=== PATIENT | male | born 1980 | race African-American/Black ===

== ENCOUNTER 2017-09-16 04:30 | Emergency (ER) | payer MEDICAID ==
[~2017-09-16] VITALS: Ht 185.4 cm; Wt 90.7 kg
[2017-09-16 05:25] VITALS: BP 151/91
[2017-09-16] MEDS ORDERED: ANUSOL-HC25 MG RECTAL (05:39)
--- NOTE | 2017-09-16 05:40 | Emergency Room Report ---
History of Present Illness General Chief Complaint: General Complaint Source: Patient Present Illness HPI Is a 36-year-old male with history of marijuana and occasional cocaine abuse. He presents with 2 complaints. One is left-sided pain is been ongoing for months. Worse when he gets anxious or use cocaine. No fever chills. No nausea no vomiting. Second complaint is rectal pain is been ongoing for the last few days but worse the last couple days. Occasional blood in his stool. No fever or chills. Radiate to the groin. Worse with sitting. Better standing. Allergies: Coded Allergies: No Known Allergies (Unverified , 09/16/17) Patient History Past Medical History: see triage record, old chart reviewed Past Surgical History: none Pertinent Family History: none Social History: Denies: smoking Immunizations: other Reviewed Nursing Documentation: PMH: Agreed; PSxH: Agreed Nursing Documentation-PMH Past Medical History: No Stated History Review of Systems Eye: Denies: eye pain, blurred vision ENT: Denies: ear pain, nose congestion, throat swelling Respiratory: Denies: cough, shortness of breath Cardiovascular: Denies: chest pain, palpitations Gastrointestinal: Denies: abdominal pain, diarrhea, nausea, vomiting Musculoskeletal: Denies: back pain, joint pain Skin: Denies: rash Neurological: Denies: headache, numbness Endocrine: Denies: increased thirst, increased urine Hematologic/Lymphatic: Denies: easy bruising All Other Systems: negative except mentioned in HPI Physical Exam Vital Signs Date Time Temp Pulse Resp B/P (MAP) Pulse Ox O2 Delivery O2 Flow Rate FiO2 09/16/17 05:24 98.5 77 18 151/91 98 Room Air 98.4 vitals with high blood pressure Sp02 EP Interpretation: reviewed, normal General Appearance: well appearing, no apparent distress, alert Head: normocephalic, atraumatic Eyes: bilateral eye PERRL, bilateral eye EOMI ENT: hearing grossly normal, normal pharynx Neck: full range of motion, supple, no meningismus Respiratory: chest non-tender, lungs clear, normal breath sounds Cardiovascular #1: regular rate, rhythm, no murmur Gastrointestinal: normal bowel sounds, non tender, no mass, no organomegaly, no bruit, non-distended Rectal: other - hemorrhoid at the 7 to 8 o'clock position. Not thrombosed. Tender To palpation Musculoskeletal: back normal, gait/station normal, normal range of motion Psychiatric: mood/affect normal Skin: warm/dry Medical Decision Making Diagnostic Impression: Primary Impression: Pain Additional Impressions: Hemorrhoid Qualified Codes: K64.9 - Unspecified hemorrhoids Drug abuse ER Course Patient with body pain secondary to anxiety and drug use. No evidence of any infection. No evidence of any trauma. He is pain-free now. We will discharge home. This hemorrhoid is not thrombosed so does not need to be excised. We'll discharge home. Last Vital Signs Date Time Temp Pulse Resp B/P (MAP) Pulse Ox O2 Delivery O2 Flow Rate FiO2 09/16/17 05:25 98.4 77 18 151/91 98 Room Air 98.4 Status: unchanged Disposition: HOME, SELF-CARE Condition: Stable Scripts Hydrocortisone Acetate* (ANUSOL-HC*) 25 Mg Supp.rect 1 SUPP RECTAL TWICE A DAY, #14 SUPP Prov: JASMINE MCNEAL M.D. 09/16/17 Referrals: NOT CHOSEN [facility]/,REFERRING (PCP) Additional Instructions: Stop using drugs. Follow-up with your doctor in 7 days. Return if worse. JASMINE MCNEAL M.D. Sep 16, 2017 05:40
[2017-09-16 05:44] VITALS: BP 151/91
== END 2017-09-16 05:45 | disposition home or self-care (01) ==
LOC: EMR 05:35
DX: K64.9 Unspecified hemorrhoids (principal); F14.10 Cocaine abuse, uncomplicated; F12.10 Cannabis abuse, uncomplicated; F41.9 Anxiety disorder, unspecified
CPT/HCPCS: 99282

== ENCOUNTER 2017-11-26 07:38 | Emergency (ER) | payer MEDICAID ==
[~2017-11-26] VITALS: Ht 185.4 cm; Wt 86.2 kg
[~2017-11-26 07:38] MED LIST: ANUSOL-HC25 MG RECTAL
[2017-11-26 07:42] VITALS: BP 176/108
[2017-11-26] MEDS ORDERED: NKM (07:44)
--- NOTE | 2017-11-26 07:56 | Emergency Room Report ---
History of Present Illness General Chief Complaint: Multiple Trauma/Fall Source: Patient Present Illness HPI Patient is a 37-year-old male who presented after increased left upper extremity pain. Patient reports having a recent fall last night. Patient states that he did not lose consciousness. Patient reports having fallen onto his left shoulder. He reports having increased pain to the left wrist as well as the left shoulder pain was worse with movement. Pain sharp in nature. The patient was having prior history of hypertension but does not currently take any medications. He reports drinking alcohol regularly. Allergies: Coded Allergies: No Known Allergies (Unverified , 09/16/17) Patient History Reviewed Nursing Documentation: PMH: Agreed; PSxH: Agreed Nursing Documentation-PMH Past Medical History: No Stated History Review of Systems All Other Systems: negative except mentioned in HPI Physical Exam Vital Signs Date Time Temp Pulse Resp B/P (MAP) Pulse Ox O2 Delivery O2 Flow Rate FiO2 11/26/17 07:42 98.0 118 18 176/108 95 Room Air 98.0 Sp02 EP Interpretation: reviewed, normal General Appearance: normal inspection, well appearing, no apparent distress, alert, GCS 15 Head: atraumatic ENT: normal ENT inspection, hearing grossly normal, normal voice Neck: normal inspection, full range of motion, supple, no bony tend Respiratory: normal inspection, lungs clear, normal breath sounds, no respiratory distress, no retraction, no wheezing Cardiovascular #1: regular rate, rhythm, no edema Gastrointestinal: normal inspection, normal bowel sounds, non tender, soft, no guarding, no hernia Genitourinary: no CVA tenderness Musculoskeletal: normal inspection, back normal, swelling - left wrist, tenderness to left shoulder near ac joint, no deformity Neurologic: normal inspection, alert, oriented x3, responsive, offset pressman III-XII nml as tested, speech normal Psychiatric: normal inspection, judgement/insight normal, mood/affect normal Skin: normal inspection, normal color, no rash Medical Decision Making Diagnostic Impression: Primary Impression: Fall Additional Impressions: Fracture of distal end of radius AC separation ER Course Patient presented for left shoulder and wrist pain. Differential diagnosis included fracture, dislocation, scapphoid fracture, sprain, ganglion cyst, septic joint , arthritis, abscess among others. Wrist and shoulder Xrays were ordered. X-ray the left shoulder 3 views interpreted by me showed normal bony alignment without evident fracture. X-ray of the left wrist 3 views interpreted by me showed a minimally displaced distal radius fracture. As well as a scaphoid fracture. The patient was placed in a thumb spica splint. The left upper extremity is placed in a sling. The patient was advised orthopedic follow-up. He is given prescription for pain medications. Last Vital Signs Date Time Temp Pulse Resp B/P (MAP) Pulse Ox O2 Delivery O2 Flow Rate FiO2 11/26/17 07:42 97.9 118 18 176/108 95 Room Air 97.9 Status: improved Disposition: HOME, SELF-CARE Condition: Stable Scripts Ibuprofen* (MOTRIN*) 600 Mg Tablet 600 MG ORAL Q8H PRN for For Pain, #30 TAB 0 Refills Prov: Jerrell Mendoza MD 11/26/17 Hydrocodone Bit/Acetaminophen 5-325* (NORCO 5-325*) 1 Each Tablet 1 TAB ORAL Q6H PRN for For Pain, #20 TAB 0 Refills Prov: Jerrell Mendoza MD 11/26/17 Jerrell Mendoza MD Nov 26, 2017 07:56
[2017-11-26] MEDS ORDERED: Acetaminophen 500mg (ES) tab ORAL ONE (08:00)
[2017-11-26] MEDS ORDERED: Ketorolac 30mg Inj IM ONE (08:00)
[2017-11-26] MEDS ORDERED: IBUPROFEN600 MG ORAL (08:17)
[2017-11-26] MEDS ORDERED: NORCO 5-325 TA1 EACH ORAL (08:17)
[2017-11-26 08:28] VITALS: BP 176/108
--- NOTE | 2017-11-26 08:31 | Diagnostic Imaging Report ---
LEFT SHOULDER, Views INDICATION: Pain COMPARISON: None FINDINGS: 3 views of the left shoulder are obtained. Mild hypertrophic arthropathy of the acromioclavicular joint space. Bony structures are intact. Bone mineralization is within normal limits. No dislocation at the glenohumeral joint. Joint spaces are preserved. Soft tissues are within normal limits. IMPRESSION: No acute fracture or dislocation identified.
--- NOTE | 2017-11-26 08:39 | Diagnostic Imaging Report ---
LEFT WRIST, Views INDICATION: Pain COMPARISON: None FINDINGS: 3 views of the left wrist are obtained. Irregularity of the distal radius suggestive of fracture without intra- articular extension, correlation can be obtained with CT. Bone mineralization and alignment are within normal limits. Joint spaces are preserved. Soft tissues are within normal limits. IMPRESSION: Irregularity of the distal radius suggestive of fracture without intra-articular extension, correlation can be obtained with CT.
== END 2017-11-26 08:27 | disposition home or self-care (01) ==
LOC: EMR 07:55
DX: S52.502A Unspecified fracture of the lower end of left radius, initial encounter for closed fracture (principal); S43.102A Unspecified dislocation of left acromioclavicular joint, initial encounter; W19.XXXA Unspecified fall, initial encounter; Y92.9 Unspecified place or not applicable
CPT/HCPCS: 73030; 73110; 96372; 99284; J1885

== ENCOUNTER 2017-12-21 11:24 | Emergency (ER) | payer MEDICAID ==
[~2017-12-21] VITALS: Ht 185.4 cm; Wt 81.6 kg
[~2017-12-21 11:24] MED LIST changes: +IBUPROFEN600 MG ORAL; +NKM; +NORCO 5-325 TA1 EACH ORAL
[2017-12-21 11:30] VITALS: BP 115/67
[2017-12-21] MEDS ORDERED: Lidocaine 2% Visc 15ml soln ORAL ONE (12:45)
[2017-12-21 13:25] VITALS: BP 120/64
[2017-12-21] MEDS ORDERED: Methocarbamol 750mg tab ORAL ONE (13:30)
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
[2017-12-21] MEDS ORDERED: MULTIVITAMINS1 EAC2 ORAL (14:20)
[2017-12-21] MEDS ORDERED: TYLENOL EXTRA500 MG ORAL (14:20)
[2017-12-21] MEDS ORDERED: ROBAXIN500 MG PO (14:20)
[2017-12-21 15:02] VITALS: BP 124/70
--- NOTE | 2017-12-21 15:44 | Diagnostic Imaging Report ---
Indication: Pain right ankle ankle pain/trauma Comparison: None Findings: 3 views of the right ankle obtained. No acute fracture, malalignment, periostitis, or osteochondral defects are identified. Soft tissues are unremarkable. Impression: Negative examination
[2017-12-21 16:00] VITALS: BP 124/70
== END 2017-12-21 16:00 | disposition home or self-care (01) ==
LOC: EDBD 11:24 → EMR 13:37
DX: M79.10 Myalgia, unspecified site (principal); S00.83XA Contusion of other part of head, initial encounter; S40.022A Contusion of left upper arm, initial encounter; S40.021A Contusion of right upper arm, initial encounter; S80.12XA Contusion of left lower leg, initial encounter; S80.11XA Contusion of right lower leg, initial encounter; S93.401A Sprain of unspecified ligament of right ankle, initial encounter; Y04.0XXA Assault by unarmed brawl or fight, initial encounter; Y92.9 Unspecified place or not applicable
CPT/HCPCS: 99283

== ENCOUNTER 2018-01-17 08:25 | Emergency (ER) | payer MEDICAID ==
[~2018-01-17] VITALS: Ht 185.4 cm; Wt 89.8 kg
[~2018-01-17 08:25] MED LIST changes: +MULTIVITAMINS1 EAC2 ORAL; +ROBAXIN500 MG PO; +TYLENOL EXTRA500 MG ORAL
[2018-01-17] MEDS ORDERED: IBUPROFEN600 MG ORAL (08:54)
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
[2018-01-17] MEDS ORDERED: Ketorolac 60mg Inj IM ONE (09:00)
[2018-01-17 09:08] VITALS: BP 127/83
== END 2018-01-17 09:15 | disposition home or self-care (01) ==
LOC: EMR 09:10
DX: S93.401A Sprain of unspecified ligament of right ankle, initial encounter (principal); X50.1XXA Overexertion from prolonged static or awkward postures, initial encounter; Y93.01 Activity, walking, marching and hiking; Y99.8 Other external cause status
CPT/HCPCS: 96372; 99283

== ENCOUNTER 2018-04-27 05:04 | Emergency (ER) | payer MEDICAID ==
[~2018-04-27] VITALS: Ht 185.4 cm; Wt 90.7 kg
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
[2018-04-27] MEDS ORDERED: Ketorolac 60mg Inj IM ONE (05:30)
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
[2018-04-27] MEDS ORDERED: Ketorolac 30mg Inj ONE (05:38)
--- NOTE | 2018-04-27 05:45 | NUR ---
ED Nurse Note: X ray at bedside.
[2018-04-27] MEDS ORDERED: IBUPROFEN600 MG ORAL (05:46)
[2018-04-27 05:51] VITALS: BP 146/94
[2018-04-27] MEDS ORDERED: Albuterol/Ipratropium 3ml neb HHN ONE (06:00)
[2018-04-27] MEDS ORDERED: Albuterol/Ipratropium 3ml neb ONE (06:02)
[2018-04-27 06:30] VITALS: BP 141/92
--- NOTE | 2018-04-27 06:30 | NUR ---
ER DISCHARGE NOTE: Patient is cleared to be discharged per Dr. Mendoza. Pt is aox4 on room air with stable vital signs. Pt was given dc and prescription instructions, pt was able to verbalize understanding, pt id band removed . pt is able to ambulate with steady gait. pt took all belongings.
--- NOTE | 2018-04-27 09:50 | Diagnostic Imaging Report ---
Indication: Shortness of breath Technique: One view of the chest Comparison: Findings: Lungs and pleural spaces are clear. Heart size is normal Impression: No acute process
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
== END 2018-04-27 06:30 | disposition home or self-care (01) ==
LOC: EMR 05:53
DX: M25.511 Pain in right shoulder (principal); R06.00 Dyspnea, unspecified; M54.6 Pain in thoracic spine; R07.9 Chest pain, unspecified
CPT/HCPCS: 71045; 73030; 93005; 94640; 94664; 96372; 99284; J1885; J7620

== ENCOUNTER 2020-01-24 01:46 | Emergency (ER) | payer MEDICAID ==
[~2020-01-24] VITALS: Ht 182.9 cm; Wt 90.7 kg
[2020-01-24 02:00] VITALS: BP 162/94
--- NOTE | 2020-01-24 02:00 | NUR ---
ED Nurse Note: Patient walked into ED c/o multiple issues, patient reports of having a palpable lump located on his right thigh, states that 3 days ago he started to pee more frequently, patient is alert and oriented x4, reports of having gained weight recently, states that he is also pre-diabetic. patient is currently tachycardic in the 140s at time of triage however reports of feeling nervousness. patient also states that he currently does have pain located on his abdomen that he rates a 8/10 pain, denies any nausea, vomiting, or diarrhea. all these symptoms started suddently. will continue to monitor
[2020-01-24] MEDS ORDERED: cefTRIAXone 1 GM in NS 55 ML IVPB ONE (02:15)
--- NOTE | 2020-01-24 02:25 | NUR ---
ED Nurse Note: pt laying in bed with eyes open, pt is AAOX4. Blood and urine collected and sent to lab by FRANCISCO Vu.
[2020-01-24 02:26] LABS: APPEARANCE,URINE CLEAR; BILIRUBIN, URINE NEGATIVE (NEGATIVE); COLOR,URINE PALE YELLOW; GLUCOSE, URINE (UA) NEGATIVE (NEGATIVE); KETONES,URINE NEGATIVE (NEGATIVE); LEUKOCYTE ESTERASE ,URINE NEGATIVE (NEGATIVE); NITRITE,URINE NEGATIVE (NEGATIVE); PH,URINE 6.5 (4.5-8.0); PROTEIN,URINE NEGATIVE (NEGATIVE); UROBILINOGEN,URINE NORMAL MG/DL (0.0-1.0)
[2020-01-24 02:27] LABS: BASOPHILS % (AUTO) 1.2 % (0.0-2.0); HEMATOCRIT 42.7 % (42.0-52.0); LYMPHOCYTES % (AUTO) 11.7 % (20.0-45.0); MEAN CORPUSCULAR VOLUME 89 FL (80-99); MONOCYTES % (AUTO) 3.4 % (1.0-10.0); NEUTROPHILS % (AUTO) 83.7 % (45.0-75.0); PLATELET COUNT 389 K/UL (150-450); RED BLOOD COUNT 4.82 M/UL (4.70-6.10); RED CELL DISTRIBUTION WIDTH 14.1 % (11.6-14.8); WHITE BLOOD COUNT 14.3 K/UL (4.8-10.8)
[2020-01-24 02:39] LABS: ANION GAP 6 mmol/L (5-15); BLOOD UREA NITROGEN 18 mg/dL (7-18); CALCIUM 8.8 MG/DL (8.5-10.1); CARBON DIOXIDE 29 MMOL/L (21-32); CHLORIDE 105 MMOL/L (98-107); CREATININE 1.2 MG/DL (0.55-1.30); POTASSIUM 3.8 MMOL/L (3.5-5.1); SODIUM 140 MMOL/L (136-145)
[2020-01-24 02:43] LABS: ALANINE AMINOTRANSFERASE 56 U/L (12-78); ALBUMIN 3.8 G/DL (3.4-5.0); ALBUMIN/GLOBULIN RATIO 1.1 (1.0-2.7); ALKALINE PHOSPHATASE 77 U/L (46-116); ASPARTATE AMINO TRANSFERASE 26 U/L (15-37); BILIRUBIN,TOTAL 0.2 MG/DL (0.2-1.0)
--- NOTE | 2020-01-24 02:56 | Emergency Room Report ---
History of Present Illness General Chief Complaint: General Complaint Source: Patient Present Illness HPI Patient is a 39-year-old male presents for increased dysuria. Reports of increased generalized burning sensation as well as increased pain to a lesion to his right thigh. Reports having recently restarted drinking. He reports having some episodes of vomiting as well as diarrhea. Allergies: Coded Allergies: No Known Allergies (Unverified , 09/16/17) COVID-19 Screening Contact w/high risk pt: No Experienced COVID-19 symptoms?: No COVID-19 Testing performed MANGLE FEEDER: Yes - 12/2019 COVID-19 Screening: Negative COVID-19 COVID-19 Testing Source: [facility] Patient History Past Medical History: see triage record Reviewed Nursing Documentation: PMH: Agreed; PSxH: Agreed Nursing Documentation-PMH Past Medical History: No Stated History Review of Systems All Other Systems: negative except mentioned in HPI Physical Exam Vital Signs Date Time Temp Pulse Resp B/P (MAP) Pulse Ox O2 Delivery O2 Flow Rate FiO2 01/24/20 01:51 98.2 130 18 162/94 (116) 96 Room Air Sp02 EP Interpretation: reviewed, normal General Appearance: normal inspection, well appearing, no apparent distress, alert, GCS 15 Head: atraumatic ENT: normal ENT inspection, hearing grossly normal, normal voice Neck: normal inspection, full range of motion, supple, no bony tend Respiratory: normal inspection, lungs clear, normal breath sounds, no respiratory distress, no retraction, no wheezing Cardiovascular #1: regular rate, rhythm, no edema Gastrointestinal: normal inspection, normal bowel sounds, non tender, soft, no guarding, no hernia Genitourinary: no CVA tenderness Musculoskeletal: normal inspection, back normal, normal range of motion Neurologic: alert, motor strength/tone normal, product design manager III-XII nml as tested, oriented x3, responsive, speech normal, normal inspection Psychiatric: normal inspection, judgement/insight normal, mood/affect normal Skin: other - lesion to the right thigh freely mobile mildly tender Medical Decision Making Diagnostic Impression: Primary Impression: Substance abuse ER Course Patient presented for increased dysuria as well as generalized body aches and n ausea. Differential diagnosis include was not limited to electrolyte abnormality, alcohol withdrawal, substance abuse among others. Because of complexity of patient's case laboratory tests and imaging studies were ordered. Patient's laboratory testing showed positive urine drug screen for amphetamine cocaine and marijuana. Patient appears to be somewhat intoxicated with possibly some alcohol withdrawal. He was given Ativan.Patient is given IV antibiotics as well as given prescription for oral antibiotics. He is advised not to use drugs. He was advised to return if worse. This medical record is generated with [email or web address] public health clinical nurse specialist software. There may be some public health clinical nurse specialist discrepancies related to use of this software Labs Test 01/24/20 02:15 White Blood Count 14.3 K/UL (4.8-10.8) Red Blood Count 4.82 M/UL (4.70-6.10) Hemoglobin 15.0 G/DL (14.2-18.0) Hematocrit 42.7 % (42.0-52.0) Mean Corpuscular Volume 89 FL (80-99) Mean Corpuscular Hemoglobin 31.1 PG (27.0-31.0) Mean Corpuscular Hemoglobin Concent 35.1 G/DL (32.0-36.0) Red Cell Distribution Width 14.1 % (11.6-14.8) Platelet Count 389 K/UL (150-450) Mean Platelet Volume 6.4 FL (6.5-10.1) Neutrophils (%) (Auto) 83.7 % (45.0-75.0) Lymphocytes (%) (Auto) 11.7 % (20.0-45.0) Monocytes (%) (Auto) 3.4 % (1.0-10.0) Eosinophils (%) (Auto) 0.0 % (0.0-3.0) Basophils (%) (Auto) 1.2 % (0.0-2.0) Urine Color Pale yellow Urine Appearance Clear Urine pH 6.5 (4.5-8.0) Urine Specific [place] 1.015 (1.005-1.035) Urine Protein Negative (NEGATIVE) Urine Glucose (UA) Negative (NEGATIVE) Urine Ketones Negative (NEGATIVE) Urine Blood 2+ (NEGATIVE) Urine Nitrite Negative (NEGATIVE) Urine Bilirubin Negative (NEGATIVE) Urine Urobilinogen Normal MG/DL (0.0-1.0) Urine Leukocyte Esterase Negative (NEGATIVE) Urine RBC 2-4 /HPF (0 - 0) Urine WBC 0 /HPF (0 - 0) Urine Squamous Epithelial Cells None /LPF (NONE/OCC) Urine Bacteria None /HPF (NONE) Sodium Level 140 MMOL/L (136-145) Potassium Level 3.8 MMOL/L (3.5-5.1) Chloride Level 105 MMOL/L (98-107) Carbon Dioxide Level 29 MMOL/L (21-32) Anion Gap 6 mmol/L (5-15) Blood Urea Nitrogen 18 mg/dL (7-18) Creatinine 1.2 MG/DL (0.55-1.30) Estimat Glomerular Filtration Rate > 60 mL/min (>60) Glucose Level 124 MG/DL (74-106) Calcium Level 8.8 MG/DL (8.5-10.1) Total Bilirubin 0.2 MG/DL (0.2-1.0) Aspartate Amino Transf (AST/SGOT) 26 U/L (15-37) Alanine Aminotransferase (ALT/SGPT) 56 U/L (12-78) Alkaline Phosphatase 77 U/L (46-116) Troponin I 0.002 ng/mL (0.000-0.056) Total Protein 7.4 G/DL (6.4-8.2) Albumin 3.8 G/DL (3.4-5.0) Globulin 3.6 g/dL Albumin/Globulin Ratio 1.1 (1.0-2.7) Lipase 84 U/L (73-393) Urine Opiates Screen Negative (NEGATIVE) Urine Barbiturates Screen Negative (NEGATIVE) Phencyclidine (PCP) Screen Negative (NEGATIVE) Urine Amphetamines Screen Positive (NEGATIVE) Urine Benzodiazepines Screen Negative (NEGATIVE) Urine Cocaine Screen Positive (NEGATIVE) Urine Marijuana (THC) Screen Positive (NEGATIVE) Serum Alcohol < 3 mg/dL Last Vital Signs Date Time Temp Pulse Resp B/P (MAP) Pulse Ox O2 Delivery O2 Flow Rate FiO2 01/24/20 02:50 115 18 138/77 100 01/24/20 02:00 Room Air 01/24/20 02:00 98.2 Status: improved Disposition: HOME, SELF-CARE Condition: Stable Scripts Lorazepam* (ATIVAN*) 1 Mg Tablet 1 MG ORAL BEDTIME, #10 TAB Prov: Jerrell Mendoza MD 01/24/20 Doxycycline Monohydrate* (DOXYCYCLINE MONOHYDRATE*) 100 Mg Capsule 100 MG ORAL Q12H, #14 CAP 0 Refills Prov: Jerrell Mendoza MD 01/24/20 Referrals: NON PHYSICIAN (PCP) Jerrell Mendoza MD Jan 24, 2020 02:56
[2020-01-24] MEDS ORDERED: LORazepam Inj 2mg/ml 1ml IV ONE (03:00)
[2020-01-24 03:05] VITALS: BP 165/81
[2020-01-24] MEDS ORDERED: ATIVAN1 MG ORAL (03:32)
[2020-01-24] MEDS ORDERED: DOXYCYCLINE MO100 MG ORAL (03:32)
[2020-01-24 04:01] VITALS: BP 151/74
--- NOTE | 2020-01-24 04:01 | NUR ---
ER DISCHARGE NOTE: Patient is cleared to be discharged per ERMD, pt is aox4, on room air, with stable vital signs. pt was given dc and paper prescriptions instructions to f/u with pmd, pt was able to verbalize understanding, pt id band and iv site removed without complications. pt is able to ambulate with steady gait. pt took all belongings.
== END 2020-01-24 04:01 | disposition home or self-care (01) ==
LOC: EMR 01:59
DX: F12.10 Cannabis abuse, uncomplicated (principal); F14.10 Cocaine abuse, uncomplicated; F15.10 Other stimulant abuse, uncomplicated; R30.0 Dysuria
CPT/HCPCS: 36415; 80053; 80307; 81003; 83690; 84484; 85025; 96361; 96365; 96375; G0480; J0696; J7030; S0028; Z7502; 99284